=== PATIENT | male | born 1975 | race Caucasian/White ===

== ENCOUNTER 2021-12-18 09:22 | Emergency (ER) | payer OTHER, BC ==
[2021-12-18] MEDS ORDERED: Lidocaine 1% 10 ML MDV INJECT ONE (10:01)
[2021-12-18] MEDS ORDERED: Diphtheria,Pertussis(Acell),Tetanus Vaccine 0.5 ML Syringe IM ONE (10:02)
[2021-12-18] MEDS ORDERED: Acetaminophen 325 MG Tab PO ONE (11:03)
== END 2021-12-18 11:35 | disposition home or self-care (01) ==
LOC: JD.ED 09:22
DX: S01.21XA Laceration without foreign body of nose, initial encounter (principal); Z23 Encounter for immunization; V49.40XA Driver injured in collision with unspecified motor vehicles in traffic accident, initial encounter; Y92.410 Unspecified street and highway as the place of occurrence of the external cause
CPT/HCPCS: 12013; 36415; 70450; 80053; 85025; 90471; 90715; 99284; A9270